=== PATIENT | male | born 1995 | race Caucasian/White ===

== ENCOUNTER 2016-12-31 19:26 | Emergency (ER) | payer BC ==
[~2016-12-31] VITALS: Ht 190.5 cm; Wt 77.1 kg
[2016-12-31 19:38] VITALS: BP 137/68
--- NOTE | 2016-12-31 19:46 | Emergency Room Report ---
History of Present Illness General Chief Complaint: Headache Source: Patient Present Illness HPI Is a 21-year-old male with no past medical history. He presents with chief complaint of head injury and headache. He actually hit himself in the right temporal area with a small metal pipe. He was rehearsing for an audition tomorrow. No loss of consciousness. No swelling. He looked up the symptoms on line and was worried that he may have a bleed. Denies any other symptom. Minimal pain. No other injury. No focal deficit. No dizziness. Allergies: Coded Allergies: No Known Allergies (Unverified , 12/31/16) Patient History Past Medical History: none, see triage record, old chart reviewed Past Surgical History: none Pertinent Family History: none Social History: Denies: smoking Immunizations: other Reviewed Nursing Documentation: PMH: Agreed, PSxH: Agreed Nursing Documentation-PMH Past Medical History: No Stated History Review of Systems Eye: Denies: blurred vision, eye pain ENT: Denies: ear pain, nose congestion, throat swelling Respiratory: Denies: cough, shortness of breath Cardiovascular: Denies: chest pain, palpitations Gastrointestinal: Denies: abdominal pain, diarrhea, nausea, vomiting Musculoskeletal: Denies: back pain, joint pain Skin: Denies: rash Neurological: Denies: headache, numbness Endocrine: Denies: increased thirst, increased urine Hematologic/Lymphatic: Denies: easy bruising All Other Systems: negative except mentioned in HPI Physical Exam Vital Signs Date Time Temp Pulse Resp B/P Pulse Ox O2 Delivery O2 Flow Rate FiO2 12/31/16 19:34 97.9 81 18 137/68 97 Room Air vitals normal Sp02 EP Interpretation: reviewed, normal General Appearance: well appearing, no apparent distress, alert Head: normocephalic, other - No hematoma. Small abrasion to the right temporal area. No laceration. Eyes: bilateral eye EOMI, bilateral eye PERRL ENT: hearing grossly normal, normal pharynx Neck: full range of motion, supple, no meningismus Respiratory: chest non-tender, lungs clear, normal breath sounds Cardiovascular #1: regular rate, rhythm, no murmur Gastrointestinal: normal bowel sounds, non tender, no mass, no organomegaly, no bruit, non-distended Musculoskeletal: back normal, gait/station normal, normal range of motion Psychiatric: mood/affect normal Skin: warm/dry Medical Decision Making Diagnostic Impression: Primary Impression: Head injury, acute, without loss of consciousness Qualified Codes: S09.90XA - Unspecified injury of head, initial encounter ER Course Patient with very minor head injury. No evidence of skull fracture. No hematoma. No hemotympanum. I discussed the risk and benefit of a CAT scan. Based on physical finding and lack of symptoms, I see no benefit to a CAT scan. If he has any neurologic deficit or increasing headache or vomiting or seizure activity, come back for CT scan. Patient expressed understanding. Last Vital Signs Date Time Temp Pulse Resp B/P Pulse Ox O2 Delivery O2 Flow Rate FiO2 12/31/16 19:34 97.9 81 18 137/68 97 Room Air Status: unchanged Disposition: HOME, SELF-CARE Condition: Stable Patient Instructions: Head Injury, Adult Additional Instructions: Followup with your Dr. in 7 days as needed. Return for increasing headache, vomiting, dizziness, seizure activity or any concern. Avoid aspirin. May take Tylenol or Motrin. RUBEN MUNGUIA M.D. Dec 31, 2016 19:46
[2016-12-31 19:50] VITALS: BP 129/60
== END 2016-12-31 19:50 | disposition home or self-care (01) ==
LOC: EMR 19:40
DX: S00.81XA Abrasion of other part of head, initial encounter (principal); W22.8XXA Striking against or struck by other objects, initial encounter; Y92.89 Other specified places as the place of occurrence of the external cause
CPT/HCPCS: 99282